=== PATIENT | male | born 1985 ===

== ENCOUNTER 2017-07-29 00:59 | Emergency (ER) | payer OTHER ==
[2017-07-29 01:30] VITALS: RESP 18; TEMP 97.9
[2017-07-29] MEDS ORDERED: Lidocaine 1% Inj (20ml) ONE (02:00)
[2017-07-29] MEDS ORDERED: Lidocaine 1% Inj (20ml) SC STA (02:26)
[2017-07-29] MEDS ORDERED: TDAP Vaccine 0.5 mL Syr IM ONE (02:26)
--- NOTE | 2017-07-29 03:03 | ED PDOC ---
Arrival/HPI - General Chief Complaint: Finger,Hand,&Wrist Time Seen by Provider: 07/29/17 01:01 Historian: Patient - History of Present Illness Narrative History of Present Illness (Text): 07/29/17 02:27 32 year old male, with no significant past medical history, presents to the emergency department complaining of a 2cm laceration to the left 4th digit across the knuckle. 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 Patient denies any other injuries. Patient denies any fever, chills, chest pain, shortness of breath, nausea, vomiting, diarrhea, urinary symptoms, back pain, neck pain, headache, dizziness , trauma/injury, suicidal/homicidal ideation or any other complaints. PMD: Dr. Gautam Symptom Onset: Sudden Symptom Course: Unchanged Activities at Onset: Light Context: Work Past Medical History - Cardiac Hx Cardiac Disorders: No - Psychiatric Hx Psychophysiologic Disorder: No Hx Substance Use: No Family/Social History Family/Social History: No Known Family HX Smoking Status: Light Smoker < 10 Cigarettes Daily Hx Alcohol Use: Yes Frequency of alcohol use: Socially Hx Substance Use: No Allergies/Home Meds Allergies/Adverse Reactions: Allergies No Known Allergies Allergy (Verified 07/29/17 01:25) Home Medications: Home Meds Medication Instructions Recorded Confirmed No Known Home Med 07/29/17 07/29/17 Review of Systems - Physician Review All systems were reviewed & negative as marked: Yes - Review of Systems Constitutional: absent: Fevers, Other (Chills) Respiratory: absent: SOB Cardiovascular: absent: Chest Pain Gastrointestinal: absent: Diarrhea, Nausea, Vomiting Genitourinary Male: absent: Dysuria, Frequency, Hematuria Musculoskeletal: absent: Back Pain, Neck Pain Skin: Laceration (2cm to the left 4th digit knuckle ) Neurological: absent: Headache, Dizziness Psychiatric: absent: Suicidal Ideation (/homicidal Ideation) Physical Exam Vital Signs Reviewed: Yes Vital Signs Temp Pulse Resp BP Pulse Ox 07/29/17 03:00 85 18 115/70 96 07/29/17 01:26 97.9 F 90 18 113/72 94 L Temperature: Afebrile Blood Pressure: Normal Pulse: Regular Respiratory Rate: Normal Appearance: Positive for: Well-Appearing, Non-Toxic, Comfortable Pain Distress: None Mental Status: Positive for: Alert and Oriented X 3 - Systems Exam Head: Present: Atraumatic, Normocephalic Pupils: Present: PERRL Extroacular Muscles: Present: EOMI Conjunctiva: Present: Normal Mouth: Present: Moist Mucous Membranes Neck: Present: Normal Range of Motion Respiratory/Chest: Present: Clear to Auscultation, Good Air Exchange. No: Respiratory Distress, Accessory Muscle Use Cardiovascular: Present: Regular Rate and Rhythm, Normal S1, S2. No: Murmurs Abdomen: No: Tenderness, Distention, Peritoneal Signs Back: Present: Normal Inspection Upper Extremity: Present: Normal ROM, NORMAL PULSES, Neurovascularly Intact, Other (2cm laceration to the left 4th digit across the PIP. Minimal bleeding. ) . No: Cyanosis, Edema, Swelling, Erythema, Temperature Abnormalties Lower Extremity: Present: Normal Inspection. No: Edema Neurological: Present: GCS=15, CN II-XII Intact, Speech Normal Skin: Present: Warm, Dry, Normal Color. No: Rashes Psychiatric: Present: Alert, Oriented x 3, Normal Insight, Normal Concentration Medical Decision Making ED Course and Treatment: 07/29/17 02:27 Impression: 32 year old male presents complaining of 2cm laceration to the left 4th digit across the knuckle while fixing a car engine. Plan: -- Boostrix -- Lidoxaine 1% (20ml) -- Reassess and disposition Progress Notes: 07/29/17 03:01 Performed by the emergency provider Location: Left 4th digit across PIP Length: 2 cm Description: {"clean wound edges","no foreign bodies"} Distal CMS: Normal. No deficits. Neurovascularly intact. Anesthesia: Lidocaine 1% 20ml Preparation: The wound was cleaned with NS and Betadyne. The area was prepped and draped in the usual sterile fashion. Exploration: The wound was explored and no foreign bodies were found. Procedure: The wound was closed with 3 o nylon continuos lock. There was good approximation. In total, 5 were used. Post-Procedure: Good closure and hemostasis. The patient tolerated the procedure well and there were no complications. CSM remains intact. Post procedure dressing applied. 07/29/17 03:16 On re-evaluation, patient feels better and is in no acute distress. I have discussed the results and plan with the patient, who expresses understanding. Patient in agreement with plan to be discharged home. Patient is stable for discharge. Patient was instructed to follow up with physician or return if symptoms worsen or new concerning symptoms arise. - Medication Orders Current Medication Orders: Discontinued Medications Lidocaine HCl (Lidocaine 1% (20ml)) 20 ml SC STAT STA Stop: 07/29/17 02:27 Last Admin: 07/29/17 02:38 Dose: Tetanus/Reduced Diphtheria/Acell Pertussis (Boostrix Vaccine Inj) 0.5 ml IM .ONCE ONE Stop: 07/29/17 02:27 Last Admin: 07/29/17 02:43 Dose: 0.5 ml MAR Immunization Data Document 07/29/17 02:43 RD (Rec: 07/29/17 02:44 RD [id number]) Immunization Data Vaccine Information Sheet Given Yes Vaccine Information Sheet Given Date 07/29/17 Immunization Registry Document 07/29/17 02:43 RD (Rec: 07/29/17 02:44 RD [id number]) Immunization Registry Consent Date 07/29/17 - Scribe Statement The provider has reviewed the documentation as recorded by the Celina Schmitz Provider Scribe Attestation: All medical record entries made by the Scribe were at my direction and personally dictated by me. I have reviewed the chart and agree that the record accurately reflects my personal performance of the history, physical exam, medical decision making, and the department course for this patient. I have also personally directed, reviewed, and agree with the discharge instructions and disposition. Disposition/Present on Arrival - Present on Arrival Any Indicators Present on Arrival: No History of DVT/PE: No History of Uncontrolled Diabetes: No Urinary Catheter: No History of Decub. Ulcer: No History Surgical Site Infection Following: None - Disposition Have Diagnosis and Disposition been Completed?: Yes Diagnosis: Finger laceration Disposition: HOME/ ROUTINE Disposition Time: 03:09 Patient Plan: Discharge Condition: GOOD Discharge Instructions (ExitCare): Laceration Repair, Laceration Repair With Stitches (DC) Additional Instructions: Reuben - Keep the laceration clean or else it will get infected. Was it several times a day with warm soapy antibacterial soap (Liquid Dial). Put a coating of bacitracin and then a bandage. Return to us if any problems. Stitches can come out in 10 days. [place]- Dr. Ernesto Davalos Referrals: Ayana Gautam DO [Primary Care Provider] - Follow up with primary Forms: [employer] ([place]ayan)
[2017-07-29 04:06] VITALS: BP 115/70; PULSE 85; O2SAT 96
== END 2017-07-29 03:25 | disposition home or self-care (01) ==
LOC: ED 00:59
DX: S61.215A Laceration without foreign body of left ring finger without damage to nail, initial encounter (principal); X58.XXXA Exposure to other specified factors, initial encounter; Y93.89 Activity, other specified; Z23 Encounter for immunization; F17.210 Nicotine dependence, cigarettes, uncomplicated